=== PATIENT | male | born 1975 | race Two or more races ===

== ENCOUNTER 2017-11-21 02:57 | Emergency (ER) | payer OTHER ==
[2017-11-21 03:03] VITALS: TEMP 97.5; O2SAT 96
[2017-11-21] MEDS ORDERED: PROPARACAINE 0.5% 15 ML OPHT DROP OP ONE (04:47)
[2017-11-21] MEDS ORDERED: FLUORESCEIN SODIUM 1 MG STRIP OP ONE (04:47)
[2017-11-21] MEDS ORDERED: OFLOXACIN 0.3% SOLN PREPACK OPHT.BTL TAKEHOME ONE (05:24)
--- NOTE | 2017-11-21 05:26 | EDPHY ---
H & P Stated Complaint: eyes hurt-UV exposure Time Seen by Provider: 11/21/17 05:10 HPI/ROS: HPI The patient presents with bilateral eye pain which has been present for the last 6 hr. At work yesterday, for 5-6 hours he was exposed to bright UV lights. He works at [employer]. He did not wear his protective eye glasses. 3-4 hours after this he began to experience eye pain which was worse when his eye was were open and improved when his eyes were closed. This is associated with some tearing of the eyes. He does not have any changes in his vision. He does not have any photosensitivity. He does notice that both of his eyes are red. REVIEW OF SYSTEMS Constitutional: No fever, no chills. Eyes: No discharge. Skin: No rashes. Neurological: No headache. PMHx: Healthy Soc Hx: Visiting from [facility] PHYSICAL General Appearance: Alert, no distress EYE EXAM Visual Acuity: noted from Nurse's notes. Pupils: equal round and reactive to light EOMI Skin: no proptosis, no periorbital erythema or swelling, no vesicles Conjunctivae: Diffusely injected with niall limbic sparing, no discharge Cornea: exam with fluoroscein shows diffuse patchy uptake bilaterally throughout both corneas Anterior chamber:normal, no hyphema or hypopyon Eyes: Pupils equal and round no pallor or injection ENT, Mouth: Mucous membranes moist Respiratory: Breathing comfortably Neurological: A&O, moves all extremities Skin: Warm and dry, no rashes Psychiatric: Patient is oriented X 3, there is no agitation Source: Patient Exam Limitations: No limitations - Personal History Tetanus Vaccine Date: 2007 - Medical/Surgical History Hx Asthma: No Hx Chronic Respiratory Disease: No Hx Diabetes: No Hx Cardiac Disease: No Hx Renal Disease: No Hx Cirrhosis: No Hx Alcoholism: No Hx HIV/AIDS: No Hx Splenectomy or Spleen Trauma: No - Social History Smoking Status: Current every day smoker Constitutional: Initial Vital Signs Temperature (C) 36.4 C 11/21/17 03:00 Heart Rate 84 11/21/17 03:00 Respiratory Rate 20 11/21/17 03:00 Blood Pressure 138/83 H 11/21/17 03:00 O2 Sat (%) 96 11/21/17 03:00 O2 Delivery Mode Room Air Allergies/Adverse Reactions: No Known Allergies Allergy (Unverified 11/21/17 02:59) Home Medications: Medication Instructions Recorded NK [No Known Home Meds] 11/21/17 Medical Decision Making Differential Diagnosis: 42-year-old male who is likely suffering from bilateral UV keratitis after being exposed to bright lights at work yesterday at [employer] His vision is preserved. I have considered corneal abrasion as well. There is no iritis given normal anterior chamber. He will be discharged with ofloxacin eyedrops and ophthalmology follow-up. - Data Points Medications Given: Discontinued Medications Fluorescein Sodium (Lfjvn-P-Qqqgr) 1 mg OP EDNOW ONE Stop: 11/21/17 04:48 Last Admin: 11/21/17 04:50 Dose: 1 mg Proparacaine HCl (Alcaine 0.5%) 1 drops OP EDNOW ONE Stop: 11/21/17 04:48 Last Admin: 11/21/17 04:50 Dose: 1 drop Departure - Departure Disposition: Home, Routine, Self-Care Clinical Impression: UV keratitis Condition: Good Instructions: Keratitis (ED) Additional Instructions: Take ofloxacin eyedrops, 1 drop per eye every 6 hr for 1 week. If your eyes are feeling worse, please follow-up with the wrapper dipper. Referrals: JING THOMPSON [Other] - As per Instructions Miguel Lieberman MD [Medical Doctor] - As per Instructions
[2017-11-21 05:49] VITALS: BP 142/103; PULSE 66; RESP 16
== END 2017-11-21 05:49 | disposition home or self-care (01) ==
DX: H16.133 Photokeratitis, bilateral (principal); F17.200 Nicotine dependence, unspecified, uncomplicated